=== PATIENT | female | born 1990 | race Caucasian/White ===

== ENCOUNTER 2016-11-13 00:10 | Emergency (ER) | payer BC, OTHER ==
[~2016-11-13] VITALS: Ht 165.1 cm; Wt 59.1 kg
[2016-11-13 00:18] VITALS: Ht 165.1 cm; Wt 59.1 kg
[2016-11-13] MEDS ORDERED: ONDANSETRON INJ 2 MG/ML 2 ML VIAL IV STA ×2 (00:28→01:25)
[2016-11-13] MEDS ORDERED: SODIUM CHLORIDE 0.9% 1000ML 2,000 ML IV STA (00:28)
[2016-11-13] MEDS ORDERED: SERT25TA PO (00:44)
[2016-11-13 00:51] LABS: BASO % 0.1 %; BASO ABS # 0.02 K/uL (0-0.2); COMPLETE YES; EOS % 0.1 %; IG% 0.4 %; LYMPH % 3.8 %; LYMPH ABS # 0.51 K/uL (1.2-3.4); MEAN CORPUSCULAR HEMOGLOBIN 30.4 pg (25-34); MEAN CORPUSCULAR HGB CONC 35.7 g/dl (32-36); MEAN PLATELET VOLUME 10.5 fL (7.4-10.4); NEUT % 92.6 %; PLATELET COUNT 249 K/uL (130-400); RED BLOOD COUNT 4.94 M/uL (4.2-5.4); WHITE BLOOD COUNT 13.49 K/uL (4.8-10.8)
[2016-11-13] MEDS ORDERED: KETOROLAC TROMETHAMINE 30 MG/ML VIAL IV STA (01:02)
[2016-11-13 01:08] LABS: BUN/CREATININE RATIO 14.7 (10-20); CREATININE 0.96 mg/dl (0.60-1.20); MAGNESIUM 1.6 mg/dl (1.8-2.4); POTASSIUM 3.1 mmol/L (3.5-5.1)
--- NOTE | 2016-11-13 01:16 | EMERGENCY ROOM VISIT NOTE ---
History First contact with patient: 00:20 Chief Complaint: ABDOMINAL PAIN Stated Complaint: DIARRHEA,HAVING TROUBLE BREATHING,NUMBNESS Nursing Triage Summary: pt c/o abd pain with n/v/d that started around 1800 History of Present Illness The patient is a 26 year old female who presents to the Emergency Department by private vehicle for evaluation of her nausea, vomiting, and diarrhea. The patient reports that she developed nausea and vomiting every few minutes had a proximally 6 PM. She developed associated diarrhea as well. She's been having pain in her abdomen after vomiting and reports that her pain occurs just before she needs to go to the bathroom and resolves after she moves her bowels. She reports that her friends have been sick with similar symptoms approximately 2 weeks ago. She denies any blood in her vomit or stool. She denies any previous abdominal surgeries. The patient complains of some trouble with breathing as well as numbness around her mouth and into her hands and feet bilaterally. She does report a history of anxiety issues. She rates her current discomfort as a 7/10. Patient denies any fevers, chills, headaches, dizziness, slurred speech, facial droop, unilateral weakness/numbness, chest pain, palpitations, hemoptysis, hematemesis, hematochezia, melena, hematuria, or dysuria. The patient denies any chance for . Review of Systems A complete 10-point Review of Systems was discussed with the patient, with pertinent positives and negatives listed in the History of Present Illness. All remaining Review of Systems questions can be considered negative unless otherwise specified. Social History Smoking Status: Never Smoker Smokeless Tobacco Use: No Drug Use: none Occupation Status: employed Current/Historical Medications Scheduled Sertraline (Zoloft), 25 MG PO DAILY Scheduled PRN Ondasetron Odt (Zofran Odt), 1 TAB SL Q6 PRN for Nausea or Vomiting Allergies Coded Allergies: Hydrocodone (Verified Adverse Reaction, Intermediate, HEADACHE/DIZZY, ) Physical Exam Vital Signs Date Time Temp Pulse Resp B/P Pulse Ox O2 Delivery O2 Flow Rate FiO2 11/13/16 02:56 92 18 101/55 98 11/13/16 02:07 99 Room Air 11/13/16 02:06 89 20 104/50 99 11/13/16 00:40 88 11/13/16 00:18 125 32 96/64 100 Room Air Pain Rating (0-10): 7 Physical Exam VITAL SIGNS - Vital signs and nursing notes were reviewed. GENERAL - 26-year-old female appearing her stated age who is in no acute distress. Communicates well with provider and answers questions appropriately. LUNGS - Chest wall symmetric without accessory muscle use, intercostals retractions, or central cyanosis. Normal vesicular breath sounds CTA B/L. No wheezes, rales, or rhonchi appreciated. CARDIAC - RRR with S1/S2. No murmur, rubs, or gallops appreciated. ABDOMEN - Abdominal contour flat and without pulsations or visible masses. Negative Daniel's or Fernandez Lau's Signs. BS normoactive all four quadrants. Mild tenderness to palpation appreciated diffusely throughout the abdomen. No guarding. No Rebound Tenderness. Negative Rovsing's. Negative Lakhani's. No palpable masses, hepatosplenomegaly, or ascites noted. EXTREMITIES - No clubbing or peripheral cyanosis. No pretibial edema present. +3 /5 radial and dorsalis pedis pulses palpated throughout. +5/5 strength appreciated bilaterally in the upper and lower extremities. PSYCH - A&Ox3 and cooperates fully with examiner. Pt is very pleasant and interacts well with examiner. Medical Decision & Procedures Laboratory Results 11/13/16 00:38 Red Blood Count 4.94, Mean Corpuscular Volume 85.0, Mean Corpuscular Hemoglobin 30.4, Mean Corpuscular Hemoglobin Concent 35.7, Mean Platelet Volume 10.5, Neutrophils (%) (Auto) 92.6, Lymphocytes (%) (Auto) 3.8, Monocytes (%) (Auto) 3.0, Eosinophils (%) (Auto) 0.1, Basophils (%) (Auto) 0.1, Neutrophils # (Auto) 12.49, Lymphocytes # (Auto) 0.51, Monocytes # (Auto) 0.40, Eosinophils # (Auto) 0.01, Basophils # (Auto) 0.02 11/13/16 00:38 Test 11/13/16 00:38 11/13/16 02:08 White Blood Count 13.49 K/uL (4.8-10.8) Red Blood Count 4.94 M/uL (4.2-5.4) Hemoglobin 15.0 g/dL (12.0-16.0) Hematocrit 42.0 % (37-47) Mean Corpuscular Volume 85.0 fL (80-100) Mean Corpuscular Hemoglobin 30.4 pg (25-34) Mean Corpuscular Hemoglobin Concent 35.7 g/dl (32-36) Platelet Count 249 K/uL (130-400) Mean Platelet Volume 10.5 fL (7.4-10.4) Neutrophils (%) (Auto) 92.6 % Lymphocytes (%) (Auto) 3.8 % Monocytes (%) (Auto) 3.0 % Eosinophils (%) (Auto) 0.1 % Basophils (%) (Auto) 0.1 % Neutrophils # (Auto) 12.49 K/uL (1.4-6.5) Lymphocytes # (Auto) 0.51 K/uL (1.2-3.4) Monocytes # (Auto) 0.40 K/uL (0.11-0.59) Eosinophils # (Auto) 0.01 K/uL (0-0.5) Basophils # (Auto) 0.02 K/uL (0-0.2) RDW Standard Deviation 38.2 fL (36.4-46.3) RDW Coefficient of Variation 12.3 % (11.5-14.5) Immature Granulocyte % (Auto) 0.4 % Immature Granulocyte # (Auto) 0.06 K/uL (0.00-0.02) Anion Gap 13.0 mmol/L (3-11) Est Creatinine Clear Calc Drug Dose 81.3 ml/min Estimated GFR () 95.9 Estimated GFR (Non- 82.8 BUN/Creatinine Ratio 14.7 (10-20) Calcium Level 9.0 mg/dl (8.5-10.1) Magnesium Level 1.6 mg/dl (1.8-2.4) Total Bilirubin 1.0 mg/dl (0.2-1) Aspartate Amino Transf (AST/SGOT) 14 U/L (15-37) Alanine Aminotransferase (ALT/SGPT) 20 U/L (12-78) Alkaline Phosphatase 38 U/L (45-117) Total Protein 7.5 gm/dl (6.4-8.2) Albumin 4.3 gm/dl (3.4-5.0) Globulin 3.2 gm/dl (2.5-4.0) Albumin/Globulin Ratio 1.3 (0.9-2) Lipase 81 U/L (73-393) Thyroid Stimulating Hormone (TSH) 1.970 uIu/ml (0.300-4.500) Urine Color ORANGE Urine Appearance CLEAR (CLEAR) Urine pH 5.0 (4.5-7.5) Urine Specific [place] 1.020 (1.000-1.030) Urine Protein NEG (NEG) Urine Glucose (UA) NEG (NEG) Urine Ketones 3+ (NEG) Urine Occult Blood NEG (NEG) Urine Nitrite NEG (NEG) Urine Bilirubin NEG (NEG) Urine Urobilinogen NEG (NEG) Urine Leukocyte Esterase NEG (NEG) Urine Test NEG (NEG) Medications Administered Medications (Trade) Dose Ordered Sig/John Route Start Time Stop Time Status Last Admin Dose Admin Sodium Chloride (Nss 1000ml) 2,000 ml @ 999 mls/hr Q2H1M STAT IV 11/13/16 00:28 11/13/16 02:28 DC 11/13/16 00:38 999 MLS/HR Ondansetron HCl (Zofran Inj) 4 mg NOW STAT IV 11/13/16 00:28 11/13/16 00:30 DC 11/13/16 00:38 4 MG Ketorolac Tromethamine (Toradol Inj) 30 mg NOW STAT IV 11/13/16 01:02 11/13/16 01:03 DC 11/13/16 01:17 30 MG Ondansetron HCl (Zofran Inj) 4 mg NOW STAT IV 11/13/16 01:25 11/13/16 01:26 DC 11/13/16 01:36 4 MG Potassium Chloride (Klor-Con M10) 20 meq NOW STAT PO 11/13/16 02:27 11/13/16 02:28 DC 11/13/16 02:37 20 MEQ Ondansetron HCl (ZOFRAN ODT 4MG Home Pack) 1 homepack UD ONCE PO 11/13/16 02:45 11/13/16 02:46 DC 11/13/16 02:50 1 HOMEPACK Procedure Patient was placed on the vehicle monitor technician and monitored throughout the entire extent of their stay. In addition, the patient's pulse oximetry was monitored throughout the entire stay. Any abnormalities or aberrancies were addressed appropriately. ED Course Patient was seen and evaluated by myself. Labs were drawn, saline lock in place. The patient was hydrated with 2000 mL of normal saline. She received 4 mg Zofran intravenously for nausea and vomiting. After demonstration of Zofran , the patient does feel somewhat better. Laboratory results demonstrate a mild leukocytosis. The patient is not anemic. There are no significant electrolyte abnormalities. Patient was reevaluated and reports feeling much better, but reports mild persistent nausea. She was treated with an additional 4 mg Zofran. Repeat abdominal exam was performed and the patient's abdomen is soft and nontender to palpation. She was provided 30 mg Toradol intravenously for occasional abdominal cramping. She was eventually able to provide a urine sample. Urinalysis does not suggest infection. Patient is eating and drinking in the emergency department without issue. She feels much better at this time. Her potassium was found to be 3.1 and she was provided 20 mEq of potassium chloride orally. Patient was educated on all today's findings. She was educated on following up with her primary care provider for repeat abdominal exam or for any change or worsening symptoms. She was instructed to return to the emergency department in the setting of any changing or worsening symptoms. Patient discharged home afebrile and in good condition. Medical Decision Given the patient's presentation and stated complaint, I did elect to perform the above-mentioned workup. The patient presents to the emergency department today complaining of nausea, vomiting, and diarrhea. There is been no blood in her vomit or stool. She was exposed to recent sick individuals as well. The patient is having an active anxiety attack on initial presentation. She has perioral area anesthesia as well as bilateral hand and feet paresthesias. She is hyperventilating. She felt much better after IV Zofran and IV fluid hydration. She had complete resolve of her symptoms with the above-mentioned medications. She does have a mild leukocytosis which I anticipate is likely from stress reaction of vomiting. Her abdomen is soft and nontender to palpation. She responded well to IV Toradol for some occasional cramping sensations. The patient will follow up closely with her primary care provider' s office on Tuesday for recheck. She was thoroughly educated on worrisome symptoms for return visit to the emergency part. Patient discharged home afebrile and in good condition. In the evaluation and treatment of this patient, the following differential diagnoses were considered: Appendicitis, Diverticulitis, Diverticulosis, Colitis , Ischemic Colitis, Inflammatory Bowel Disease, Irritable Bowel Disease, Ovarian Torsion, , Kidney Stone, Pyelonephritis, Hydronephrosis, Cholecystitis, Ascending Cholangitis, Choledocholithiasis, GERD. Impression Primary Impression: Acute gastroenteritis Additional Impression: Anxiety reaction Departure Information Dispostion Home / Self-Care Condition GOOD Prescriptions Ondasetron Odt (ZOFRAN ODT) 4 Mg Tab 1 TAB SL Q6 Y for Nausea or Vomiting for 5 Days, #20 TAB Prov: Randy Corral PA-C 11/13/16 Referrals Micheline Simpson D.O. (PCP) Patient Instructions A Signature Page, ED Anxiety Reaction Ch, ED Gastroenteritis Non Infec Ch Additional Instructions You have been treated in the Emergency Department your Nausea, Vomiting, and Diarrhea. You have been prescribed Zofran to be used for any nausea or vomiting. Take as prescribed. For pain control, you can use the following [id number] medicines (if >12 yo): - Regular strength (325mg/tab) Tylenol (acetaminophen) 2 tabs every 4-6 hours as needed. Do not exceed 12 tablets in a 24 hour period. Avoid taking more than 4 grams (4000 mg) of Tylenol per day. This includes any other sources of acetaminophen you may take on a regular basis. - Regular strength (200 mg/tab) Advil (ibuprofen) 1-2 tabs every 4-6 hours as needed. Do not exceed a dose of 3200 mg per day. Drink plenty of water and stay well hydrated. As with any trip to the Emergency Department, you should follow-up with your Primary Care Provider from today's visit. Return to the emergency department if your symptoms persist despite treatment plan outlined above or if the following symptoms occur: increased fevers, chills , worsening nausea/vomiting, blood in your stool or urine.
[2016-11-13 01:19] LABS: ALB/GLOB RATIO 1.3 (0.9-2); THYROID STIMULATING HORMONE 1.97 uIu/ml (0.300-4.500)
[2016-11-13 02:07] VITALS: O2SAT 99
[2016-11-13] MEDS ORDERED: POTASSIUM CHLORIDE 10 MEQ TABCR PO STA (02:27)
[2016-11-13 02:31] LABS: URINE APPEARANCE CLEAR (CLEAR); URINE BILIRUBIN NEG (NEG); URINE COLOR ORANGE; URINE NITRITE NEG (NEG); UROBILINOGEN NEG (NEG); ZZUR CULT IF INDIC CLEAN CATCH NO
[2016-11-13 02:32] LABS: PREG INTERNAL NEGATIVE QC NEG CLEAR BACKGROUND; PREG INTERNAL POSITIVE QC POS CONTROL LINE
[2016-11-13 02:34] LABS: MANUAL MICROSCOPIC REQUIRED? NO; REVIEW REQ? NO
[2016-11-13] MEDS ORDERED: ONDA4TAB10 SL (02:43)
[2016-11-13] MEDS ORDERED: ONDANSETRON HOME PACK 4MG OD TAB PO ONE (02:45)
[2016-11-13 02:56] VITALS: BP 101/55; PULSE 92; O2SAT 98
[2016-11-13] MEDS ORDERED: ACET-1256 PO (18:56)
== END 2016-11-13 03:00 | disposition home or self-care (01) ==
LOC: C.EDB 00:10
DX: K52.9 Noninfective gastroenteritis and colitis, unspecified (principal); F41.9 Anxiety disorder, unspecified; D72.829 Elevated white blood cell count, unspecified; Z88.5 Allergy status to narcotic agent

== ENCOUNTER 2016-11-13 18:36 | Emergency (ER) | payer BC ==
[~2016-11-13] VITALS: Ht 165.1 cm; Wt 60.9 kg
[~2016-11-13 18:36] MED LIST: ONDA4TAB10 SL; SERT25TA PO
[2016-11-13 18:39] VITALS: TEMP 36.8; Ht 165.1 cm; Wt 60.9 kg
[2016-11-13] MEDS ORDERED: ACET-1256 PO (18:56)
[2016-11-13] MEDS ORDERED: SODIUM CHLORIDE 0.9% 1000ML 1,000 ML IV STA (19:34)
[2016-11-13] MEDS ORDERED: MoRPHine SULFATE 2 MG/ML CARP IV STA (19:34)
[2016-11-13] MEDS ORDERED: PROMETHAZINE HCL INJ 12.5 MG in SODIUM CHLORIDE 0.9% 50ML 50 ML IV STA (19:34)
--- NOTE | 2016-11-13 19:53 | EMERGENCY ROOM VISIT NOTE ---
History Report prepared by Jet: Brina Fernandes Under the Supervision of: Dr. Sue Flores M.D. First contact with patient: 19:01 Chief Complaint: GI ASSESSMENT Stated Complaint: ABD PAIN,VOMITING,DIARRHEA,LOW BP Nursing Triage Summary: patient seen here yesterday for nausea/ vomiting and was sent home on zofran. patient states today symptoms remain unchanged along with abdominal discomfort and she was told to come back to ED if not feeling improvement. History of Present Illness The patient is a 26 year old female who presents to the Emergency Room with complaints of persistent upper abdominal pain throughout the day. She notes that the pain radiates across the top of her abdomen but occasionally it is worse in the right upper quadrant. She also complains of nausea. The patient was seen in the emergency room early this morning for nausea and vomiting, "I had severe dehydration and shock symptoms." She was discharged after having lab work and receiving Zofran, fluids and Toradol. She was diagnosed with acute gastroenteritis and anxiety reaction and was discharged with a prescription for Zofran. She was told to come back to the emergency room if her symptoms did not improve. Today, the patient continued to have abdominal pain and also had worsening nausea throughout the day. She states that she has been taking more Zofran than recommended because she was afraid she would vomit. This evening, the patient was seen at Urgent Care and her blood pressure was low at around 80/ 30. She was referred to the ER at that point. She has taken Tylenol 3 separate times today. Source of History: patient Onset: today Position: abdomen (upper) Timing: worsening Associated Symptoms: + nausea Note: Other symptoms: hypotension Review of Systems See HPI for pertinent positives & negatives. A total of 10 systems reviewed and were otherwise negative. Past Medical & Surgical Medical Problems: (1) Anxiety (2) Asthma (3) Depression Family History Cancer Heart disease Hypertension Social History Smoking Status: Never Smoker Smokeless Tobacco Use: No Alcohol Use: occasionally Drug Use: none Housing Status: lives alone Occupation Status: employed Current/Historical Medications Scheduled Sertraline (Zoloft), 37.5 MG PO DAILY Scheduled PRN Acetaminophen (Tylenol), 500 MG PO Q8 PRN for Pain Ondasetron Odt (Zofran Odt), 1 TAB SL Q6 PRN for Nausea or Vomiting Allergies Coded Allergies: Iodine (Unverified Allergy, Unknown, HIVES, 11/13/16) IODINE SOLUTION Oxycodone (Unverified Allergy, Unknown, HEADACHE/DIZZINESS, 11/13/16) Hydrocodone (Verified Adverse Reaction, Intermediate, HEADACHE/DIZZY, ) Physical Exam Vital Signs Date Time Temp Pulse Resp B/P Pulse Ox O2 Delivery O2 Flow Rate FiO2 11/13/16 21:48 78 20 95/55 98 Room Air 11/13/16 20:23 84 11/13/16 20:22 77 20 94/55 100 11/13/16 18:39 36.8 98 18 99/57 96 Room Air Physical Exam Vital signs reviewed. General: Well-appearing 26 year old female, in no significant distress. HEENT: No scleral icterus, PERRLA, neck supple. Atraumatic. Cardiovascular: Regular rate and rhythm, no extra sounds. Pulmonary: Clear to auscultation bilaterally, normal work of breathing. Abdomen: Soft, tender to palpation of the epigastric region, nondistended, positive bowel sounds. Musculoskeletal: Atraumatic, no peripheral edema. Neurologic: Patient awake alert and oriented x 3 Skin: Warm, dry, no rash Medical Decision & Procedures ER Provider Diagnostic Interpretation: CT results as stated below per my review and radiologist interpretation: ABDOMEN AND PELVIS CT WITH IV CONTRAST CT DOSE: 263.54 mGy.cm HISTORY: epigastric abdominal pain, guarding, vomiting TECHNIQUE: Multiaxial CT images of the abdomen and pelvis were performed following the use of intravenous contrast. COMPARISON STUDY: None. FINDINGS: Trace pelvic free fluid which is likely physiologic. The bladder, uterus, left ovary are unremarkable. There is a 2.2 cm cyst within the right ovary. The visualized portions of the appendix are unremarkable. The lung bases are clear. No pneumoperitoneum. No pneumatosis. No fractures within the visualized osseous structures. The liver, gallbladder, pancreas, spleen, adrenal glands, and kidneys are unremarkable. No hydronephrosis. No retroperitoneal lymphadenopathy. Multiple mesenteric lymph nodes are subcentimeter in short axis diameter. Therefore, these do not meet CT criteria for pathologic involvement. The majority of the bowel is decompressed which results in suboptimal evaluation for bowel pathology. However, there is no definite bowel wall thickening or obstruction. IMPRESSION: 1. No definite bowel wall thickening or obstruction. 2. The visualized appendix is unremarkable. 3. Trace pelvic free fluid which is likely physiologic. 4. A 2.2 cm right ovarian cyst. Electronically signed by: Pola Tay M.D. 11/13/2016 9:03 PM Dictated Date/Time: 11/13/2016 8:55 PM Laboratory Results 11/13/16 19:55 Red Blood Count 4.31, Mean Corpuscular Volume 85.4, Mean Corpuscular Hemoglobin 28.8, Mean Corpuscular Hemoglobin Concent 33.7, Mean Platelet Volume 10.1, Neutrophils (%) (Auto) 84.5, Lymphocytes (%) (Auto) 7.6, Monocytes (%) (Auto) 6.9, Eosinophils (%) (Auto) 0.5, Basophils (%) (Auto) 0.3, Neutrophils # (Auto) 5.00, Lymphocytes # (Auto) 0.45, Monocytes # (Auto) 0.41, Eosinophils # (Auto) 0.03, Basophils # (Auto) 0.02 11/13/16 19:55 Test 11/13/16 19:55 White Blood Count 5.92 K/uL (4.8-10.8) Red Blood Count 4.31 M/uL (4.2-5.4) Hemoglobin 12.4 g/dL (12.0-16.0) Hematocrit 36.8 % (37-47) Mean Corpuscular Volume 85.4 fL (80-100) Mean Corpuscular Hemoglobin 28.8 pg (25-34) Mean Corpuscular Hemoglobin Concent 33.7 g/dl (32-36) Platelet Count 184 K/uL (130-400) Mean Platelet Volume 10.1 fL (7.4-10.4) Neutrophils (%) (Auto) 84.5 % Lymphocytes (%) (Auto) 7.6 % Monocytes (%) (Auto) 6.9 % Eosinophils (%) (Auto) 0.5 % Basophils (%) (Auto) 0.3 % Neutrophils # (Auto) 5.00 K/uL (1.4-6.5) Lymphocytes # (Auto) 0.45 K/uL (1.2-3.4) Monocytes # (Auto) 0.41 K/uL (0.11-0.59) Eosinophils # (Auto) 0.03 K/uL (0-0.5) Basophils # (Auto) 0.02 K/uL (0-0.2) RDW Standard Deviation 38.9 fL (36.4-46.3) RDW Coefficient of Variation 12.5 % (11.5-14.5) Immature Granulocyte % (Auto) 0.2 % Immature Granulocyte # (Auto) 0.01 K/uL (0.00-0.02) Urine Color DK YELLOW Urine Appearance CLOUDY (CLEAR) Urine pH 5.5 (4.5-7.5) Urine Specific [place] 1.044 (1.000-1.030) Urine Protein 1+ (NEG) Urine Glucose (UA) NEG (NEG) Urine Ketones TRACE (NEG) Urine Occult Blood NEG (NEG) Urine Nitrite NEG (NEG) Urine Bilirubin NEG (NEG) Urine Urobilinogen NEG (NEG) Urine Leukocyte Esterase NEG (NEG) Urine WBC (Auto) 1-5 /hpf (0-5) Urine RBC (Auto) 0-4 /hpf (0-4) Urine Hyaline Casts (Auto) 0 /lpf (0-5) Urine Epithelial Cells (Auto) >30 /lpf (0-5) Urine Bacteria (Auto) NEG (NEG) Urine Renal Epithelial Cells /lpf (0-5) Urine Mucus PRESENT (NONE PRSENT) Urine Yeast (Auto) (NONE PRSENT) Anion Gap 9.0 mmol/L (3-11) Est Creatinine Clear Calc Drug Dose 125.9 ml/min Estimated GFR () 146.3 Estimated GFR (Non- 126.2 BUN/Creatinine Ratio 17.8 (10-20) Calcium Level 8.0 mg/dl (8.5-10.1) Total Bilirubin 0.5 mg/dl (0.2-1) Direct Bilirubin 0.1 mg/dl (0-0.2) Aspartate Amino Transf (AST/SGOT) 13 U/L (15-37) Alanine Aminotransferase (ALT/SGPT) 18 U/L (12-78) Alkaline Phosphatase 29 U/L (45-117) Total Protein 5.9 gm/dl (6.4-8.2) Albumin 3.2 gm/dl (3.4-5.0) Lipase 72 U/L (73-393) Laboratory results per my review. Medications Administered Medications (Trade) Dose Ordered Sig/John Route Start Time Stop Time Status Last Admin Dose Admin Sodium Chloride 1,000 ml @ 999 mls/hr Q1H1M STAT IV 11/13/16 19:34 11/13/16 20:34 DC 11/13/16 19:54 999 MLS/HR Promethazine HCl/ Sodium Chloride (Phenergan Inj/ Nss 50ml) 50.5 ml @ 204 mls/hr NOW STAT IV 11/13/16 19:34 11/13/16 19:48 DC 11/13/16 19:59 204 MLS/HR Morphine Sulfate (MoRPHine SULFATE INJ) 2 mg NOW STAT IV 11/13/16 19:34 11/13/16 19:37 DC 11/13/16 20:01 2 MG Methylprednisolone Sodium Succinate (Solu-Medrol IV) 125 mg NOW STAT IV 11/13/16 20:04 11/13/16 20:05 DC 11/13/16 20:20 125 MG Diphenhydramine HCl (Benadryl Inj) 25 mg NOW STAT IV 11/13/16 20:04 11/13/16 20:05 DC 11/13/16 20:20 25 MG Potassium Chloride (Klor-Con M10) 40 meq NOW STAT PO 11/13/16 20:38 11/13/16 20:39 DC 11/13/16 21:01 40 MEQ Famotidine (Pepcid Tab) 20 mg NOW ONCE PO 11/13/16 21:30 11/13/16 21:31 DC 11/13/16 21:45 20 MG ED Course 1932: Past medical records reviewed. The patient was evaluated in room B8. A complete history and physical examination was performed. Ordered Morphine Sulfate 2 mg IV, Promethazine HCl 12.5 mg/NSS 50.5 ml @ 204 mls/hr IV, NSS 1000 ml @ 999 mls/hr IV. 2003: Ordered Benadryl Inj 25 mg IV, Solu-Medrol 125 mg IV. 2037: Ordered Potassium Chloride 40 meq PO. 2123: Upon reevaluation, the patient appeared to have improvement of her symptoms. I discussed findings with the patient. She verbalized agreement of the treatment plan. The patient was discharged home. 2129: Ordered Famotidine 20 mg PO. Medical Decision Differential diagnosis: Etiologies such as gastroenteritis, food borne illness, infections, appendicitis , diverticulitis, inflammatory bowel disease, obstruction, GI bleed, biliary pathology, as well as others were entertained. This patient was evaluated and appeared to be in no significant distress. IV access was obtained and laboratory work was drawn. The patient was hydrated with normal saline solution. She was medicated with IV Phenergan and morphine for her discomforts. A CT scan abdomen and pelvis was performed as she was markedly tender to the epigastric region on exam. She does have some allergic reaction to IV iodine and was premedicated with IV Benadryl and Solu-Medrol prior to the CT. Laboratory work is fairly unrevealing. Lipase is normal. CT scan reveals no evidence of acute pathology. The patient was informed of the findings. She was advised to drink plenty of clear liquids and a Zofran as needed for nausea. She will start Pepcid 20 mg twice daily and follow-up with her primary care physician this week. She will return to the ER for worsening of symptoms or any medical concerns. Impression Primary Impression: Epigastric abdominal pain Additional Impression: Nausea Scribe Attestation The scribe's documentation has been prepared under my direction and personally reviewed by me in its entirety. I confirm that the note above accurately reflects all work, treatment, procedures, and medical decision making performed by me. Departure Information Dispostion Home / Self-Care Referrals Micheline Simpson D.O. (PCP) Patient Instructions A Signature Page, My [facility] Additional Instructions Diagnosis: Nausea, epigastric abdominal pain Pepcid 20 mg twice daily. Continue Zofran every 6 hours as needed for nausea. Drink plenty of clear fluids. Advance your diet slowly as tolerated, bananas, rice, applesauce and toast. Return to the emergency department for worsening of symptoms or any medical concerns.
[2016-11-13] MEDS ORDERED: METHYLPREDNISOLONE 125 MG VIAL IV STA (20:04)
[2016-11-13] MEDS ORDERED: DiphenhydrAMINE HCL 50 MG/ML VIAL IV STA (20:04)
[2016-11-13 20:06] LABS: BASO % 0.3 %; BASO ABS # 0.02 K/uL (0-0.2); COMPLETE YES; EOS % 0.5 %; HEMATOCRIT 36.8 % (37-47); IG% 0.2 %; LYMPH % 7.6 %; LYMPH ABS # 0.45 K/uL (1.2-3.4); MEAN CELL VOLUME 85.4 fL (80-100); MEAN CORPUSCULAR HEMOGLOBIN 28.8 pg (25-34); MEAN CORPUSCULAR HGB CONC 33.7 g/dl (32-36); MEAN PLATELET VOLUME 10.1 fL (7.4-10.4); MONO % 6.9 %; NEUT % 84.5 %; PLATELET COUNT 184 K/uL (130-400); RED BLOOD COUNT 4.31 M/uL (4.2-5.4); WHITE BLOOD COUNT 5.92 K/uL (4.8-10.8)
[2016-11-13 20:36] LABS: BUN/CREATININE RATIO 17.8 (10-20); POTASSIUM 3.1 mmol/L (3.5-5.1)
[2016-11-13 20:37] LABS: CREATININE 0.62 mg/dl (0.60-1.20)
[2016-11-13] MEDS ORDERED: POTASSIUM CHLORIDE 10 MEQ TABCR PO STA (20:38)
[2016-11-13] MEDS ORDERED: OPTIRAY 320 IV PRN (20:45)
--- NOTE | 2016-11-13 21:05 | DIAGNOSTIC IMAGING REPORT ---
ABDOMEN AND PELVIS CT WITH IV CONTRAST CT DOSE: 263.54 mGy.cm HISTORY: epigastric abdominal pain, guarding, vomiting TECHNIQUE: Multiaxial CT images of the abdomen and pelvis were performed following the use of intravenous contrast. COMPARISON STUDY: None. FINDINGS: Trace pelvic free fluid which is likely physiologic. The bladder, uterus, left ovary are unremarkable. There is a 2.2 cm cyst within the right ovary. The visualized portions of the appendix are unremarkable. The lung bases are clear. No pneumoperitoneum. No pneumatosis. No fractures within the visualized osseous structures. The liver, gallbladder, pancreas, spleen, adrenal glands, and kidneys are unremarkable. No hydronephrosis. No retroperitoneal lymphadenopathy. Multiple mesenteric lymph nodes are subcentimeter in short axis diameter. Therefore, these do not meet CT criteria for pathologic involvement. The majority of the bowel is decompressed which results in suboptimal evaluation for bowel pathology. However, there is no definite bowel wall thickening or obstruction. IMPRESSION: 1. No definite bowel wall thickening or obstruction. 2. The visualized appendix is unremarkable. 3. Trace pelvic free fluid which is likely physiologic. 4. A 2.2 cm right ovarian cyst. Electronically signed by: Pola Tay M.D. 11/13/2016 9:03 PM Dictated Date/Time: 11/13/2016 8:55 PM
[2016-11-13] MEDS ORDERED: FAMOTIDINE 20 MG TAB PO ONE (21:30)
[2016-11-13 21:48] VITALS: BP 95/55; PULSE 78; O2SAT 98
[2016-11-13 23:03] LABS: URINE APPEARANCE CLOUDY (CLEAR); URINE COLOR DK YELLOW; URINE EPITHELIAL CELL AUTO >30 /lpf (0-5); URINE NITRITE NEG (NEG); URINE PH 5.5 (4.5-7.5); URINE SPECIFIC GRAVITY 1.044 (1.000-1.030); UROBILINOGEN NEG (NEG); ZZUR CULT IF INDIC CLEAN CATCH YES
[2016-11-13 23:17] LABS: MANUAL MICROSCOPIC REQUIRED? NO; REVIEW REQ? YES; URINE BILIRUBIN NEG (NEG)
[2016-11-13 23:23] LABS: URINE MUCUS PRESENT (NONE PRSENT)
== END 2016-11-13 21:50 | disposition home or self-care (01) ==
LOC: C.EDB 18:39
DX: R10.13 Epigastric pain (principal); R11.0 Nausea; F41.9 Anxiety disorder, unspecified; J45.909 Unspecified asthma, uncomplicated; F32.9 Major depressive disorder, single episode, unspecified; Z88.5 Allergy status to narcotic agent; Z91.09 Other allergy status, other than to drugs and biological substances; Z88.8 Allergy status to other drugs, medicaments and biological substances; Z80.9 Family history of malignant neoplasm, unspecified; Z82.49 Family history of ischemic heart disease and other diseases of the circulatory system

== ENCOUNTER 2017-11-16 01:27 | Emergency (ER) | payer BC, OTHER ==
[~2017-11-16] VITALS: Ht 162.6 cm; Wt 56.9 kg
[~2017-11-16 01:27] MED LIST changes: +ACET-1256 PO; -ONDA4TAB10 SL
[2017-11-16 01:33] VITALS: TEMP 36.9; Ht 162.6 cm; Wt 56.9 kg
[2017-11-16] MEDS ORDERED: SODIUM CHLORIDE 0.9% 1000ML 1,000 ML IV STA (02:05)
[2017-11-16 02:54] LABS: BASO % 0.4 %; BASO ABS # 0.02 K/uL (0-0.2); HEMOGLOBIN 13.9 g/dL (12.0-16.0); IG# 0.02 K/uL (0.00-0.02); LYMPH ABS # 0.27 K/uL (1.2-3.4); MEAN CELL VOLUME 84.9 fL (80-100); MEAN CORPUSCULAR HEMOGLOBIN 29.5 pg (25-34); MEAN CORPUSCULAR HGB CONC 34.8 g/dl (32-36); MEAN PLATELET VOLUME 10.2 fL (7.4-10.4); MONO % 7.2 %; MONO ABS # 0.39 K/uL (0.11-0.59); NEUT ABS # 4.72 K/uL (1.4-6.5); PLATELET COUNT 172 K/uL (130-400); RED CELL DISTRIBUTION WIDTH CV 12.9 % (11.5-14.5); RED CELL DISTRIBUTION WIDTH SD 39.7 fL (36.4-46.3); WHITE BLOOD COUNT 5.42 K/uL (4.8-10.8)
[2017-11-16] MEDS ORDERED: LOPERAMIDE HCL 2 MG CAP PO STA (02:59)
[2017-11-16 03:11] LABS: ALBUMIN 3.7 gm/dl (3.4-5.0); ALT/SGPT 19 U/L (12-78); AST/SGOT 12 U/L (15-37); BLOOD UREA NITROGEN 10 mg/dl (7-18); CALCIUM 8.6 mg/dl (8.5-10.1); CARBON DIOXIDE 25 mmol/L (21-32); GLUCOSE 100 mg/dl (70-99); POTASSIUM 3.4 mmol/L (3.5-5.1); SODIUM 134 mmol/L (136-145)
[2017-11-16 03:13] LABS: ALKALINE PHOSPHATASE 38 U/L (45-117); TOTAL PROTEIN 6.9 gm/dl (6.4-8.2)
[2017-11-16] MEDS ORDERED: SERT50TA PO (03:49)
[2017-11-16 04:01] VITALS: BP 104/55
[2017-11-16 04:12] VITALS: PULSE 77; O2SAT 96
--- NOTE | 2017-11-16 09:49 | EMERGENCY ROOM VISIT NOTE ---
History Report prepared by Jet: Anastasia Khoury Under the Supervision of: Dr. Ca Doty D.O. First contact with patient: 01:40 Chief Complaint: VOMITING Stated Complaint: VOMITING,DIARRHEA,BLOODY VOMIT History of Present Illness The patient is a 27 year old female who presents to the Emergency Room with complaints of worsening vomiting starting yesterday morning. The patient states that she got the stomach bug and all he friends have had it. She states that she usually ends up in the ED when she gets sick like this because it gets so intense she becomes dehydrated. She reports that her PCP prescribed her Zofran 4 mg for when this happens. She states that she last took it five hours ago. The patient reports that this has helped keep the vomiting to a minimum, but still has been. She states that she became concerned when she had a little blood in her vomit. The patient notes that she has been drinking ice water and Sherie Yeny. The patient complains of nausea, diarrhea, and abdominal pain. She notes her last bought of diarrhea was an hour ago. She denies taking Imodium for it. She notes that she took Tylenol and it offered relief for her abdominal pain. The patient denies leg cramping and leg swelling. The patient notes that her LNMP was two weeks ago. Source of History: patient Onset: yesterday morning Position: other (global) Quality: other (with blood) Timing: worsening Modifying Factors (Relieving): tylenol Associated Symptoms: + nausea, + abdominal pain, + diarrhea Note: The patient denies leg cramping and leg swelling. Review of Systems See HPI for pertinent positives & negatives. A total of 10 systems reviewed and were otherwise negative. Past Medical & Surgical Medical Problems: (1) Anxiety (2) Asthma (3) Depression Family History Cancer Heart disease Hypertension Social History Smoking Status: Never Smoker Alcohol Use: occasionally Drug Use: none Housing Status: lives alone Occupation Status: employed Current/Historical Medications Scheduled Sertraline (Zoloft), 75 MG PO DAILY Allergies Coded Allergies: Iodine (Unverified Allergy, Unknown, HIVES, 11/16/17) IODINE SOLUTION Oxycodone (Unverified Allergy, Unknown, HEADACHE/DIZZINESS, 11/16/17) Hydrocodone (Verified Adverse Reaction, Intermediate, HEADACHE/DIZZY, 11/16) Physical Exam Vital Signs Date Time Temp Pulse Resp B/P (MAP) Pulse Ox O2 Delivery O2 Flow Rate FiO2 11/16/17 04:12 77 96 11/16/17 04:07 78 96 11/16/17 04:02 76 16 96 Room Air 11/16/17 04:01 104/55 11/16/17 03:47 78 97 11/16/17 03:32 74 97 11/16/17 03:31 106/60 11/16/17 03:17 82 96 11/16/17 03:12 70 18 95 11/16/17 03:01 106/63 11/16/17 02:57 83 97 11/16/17 02:42 72 98 11/16/17 02:31 112/63 11/16/17 02:27 82 97 11/16/17 02:12 78 96 11/16/17 02:01 113/66 11/16/17 01:57 87 18 96 Room Air 11/16/17 01:56 125/64 11/16/17 01:33 36.9 114 18 101/60 96 Room Air Physical Exam HEENT: Head - normocephalic and atraumatic Pupils are equal, round, and reactive to light. Extraocular eye muscles are intact, and sclera are anicteric. Nose - moist nasal mucosa without discharge. Mouth - moist buccal mucosa. Oropharynx is nonerythematous and there is no tonsillar exudate or edema noted. Neck: Supple; no JVD, nuchal rigidity, cervical lymphadenopathy. Heart: Regular rate and rhythm. There is a normal S1 and S2 with no murmurs, clicks, or gallops appreciated. Lungs: Clear to auscultation bilaterally with no wheezes, rales, or rhonchi. Abdomen: Soft, completely nontender, nondistended, with good bowel sounds. There are no palpable pulsatile masses or hepatosplenomegaly. There is no guarding, rigidity, or rebound noted. Extremities: No evidence of cyanosis, clubbing, or edema. There are easily palpable peripheral pulses. Skin: warm and dry with good turgor and no rashes. Medical Decision & Procedures Laboratory Results 11/16/17 02:35 Red Blood Count 4.71, Mean Corpuscular Volume 84.9, Mean Corpuscular Hemoglobin 29.5, Mean Corpuscular Hemoglobin Concent 34.8, Mean Platelet Volume 10.2, Neutrophils (%) (Auto) 87.0, Lymphocytes (%) (Auto) 5.0, Monocytes (%) (Auto) 7.2, Eosinophils (%) (Auto) 0.0, Basophils (%) (Auto) 0.4, Neutrophils # (Auto) 4.72, Lymphocytes # (Auto) 0.27, Monocytes # (Auto) 0.39, Eosinophils # (Auto) 0.00, Basophils # (Auto) 0.02 11/16/17 02:35 Test 11/16/17 02:35 White Blood Count 5.42 K/uL (4.8-10.8) Red Blood Count 4.71 M/uL (4.2-5.4) Hemoglobin 13.9 g/dL (12.0-16.0) Hematocrit 40.0 % (37-47) Mean Corpuscular Volume 84.9 fL (80-100) Mean Corpuscular Hemoglobin 29.5 pg (25-34) Mean Corpuscular Hemoglobin Concent 34.8 g/dl (32-36) Platelet Count 172 K/uL (130-400) Mean Platelet Volume 10.2 fL (7.4-10.4) Neutrophils (%) (Auto) 87.0 % Lymphocytes (%) (Auto) 5.0 % Monocytes (%) (Auto) 7.2 % Eosinophils (%) (Auto) 0.0 % Basophils (%) (Auto) 0.4 % Neutrophils # (Auto) 4.72 K/uL (1.4-6.5) Lymphocytes # (Auto) 0.27 K/uL (1.2-3.4) Monocytes # (Auto) 0.39 K/uL (0.11-0.59) Eosinophils # (Auto) 0.00 K/uL (0-0.5) Basophils # (Auto) 0.02 K/uL (0-0.2) RDW Standard Deviation 39.7 fL (36.4-46.3) RDW Coefficient of Variation 12.9 % (11.5-14.5) Immature Granulocyte % (Auto) 0.4 % Immature Granulocyte # (Auto) 0.02 K/uL (0.00-0.02) Urine Color YELLOW Urine Appearance CLOUDY (CLEAR) Urine pH 5.5 (4.5-7.5) Urine Specific [place] 1.025 (1.000-1.030) Urine Protein 1+ (NEG) Urine Glucose (UA) NEG (NEG) Urine Ketones 2+ (NEG) Urine Occult Blood 1+ (NEG) Urine Nitrite NEG (NEG) Urine Bilirubin NEG (NEG) Urine Urobilinogen NEG (NEG) Urine Leukocyte Esterase NEG (NEG) Urine RBC 5-10 /hpf (0-4) Urine WBC 1-5 /hpf (0-5) Urine Epithelial Cells >30 /lpf (0-5) Urine Amorphous Sediment PRESENT (NONE PRSENT) Urine Bacteria 1+ (NEG) Urine Hyaline Casts 0 /lpf (0-5) Urine Test NEG (NEG) Anion Gap 6.0 mmol/L (3-11) Est Creatinine Clear Calc Drug Dose 123.8 ml/min Estimated GFR () 146.8 Estimated GFR (Non- 126.7 BUN/Creatinine Ratio 16.2 (10-20) Calcium Level 8.6 mg/dl (8.5-10.1) Total Bilirubin 0.4 mg/dl (0.2-1) Direct Bilirubin < 0.1 mg/dl (0-0.2) Aspartate Amino Transf (AST/SGOT) 12 U/L (15-37) Alanine Aminotransferase (ALT/SGPT) 19 U/L (12-78) Alkaline Phosphatase 38 U/L (45-117) Total Protein 6.9 gm/dl (6.4-8.2) Albumin 3.7 gm/dl (3.4-5.0) Laboratory results per my review. Medications Administered Medications (Trade) Dose Ordered Sig/John Route Start Time Stop Time Status Last Admin Dose Admin Sodium Chloride 1,000 ml @ 999 mls/hr Q1H1M STAT IV 11/16/17 02:05 11/16/17 03:05 DC 11/16/17 02:38 999 MLS/HR Loperamide HCl (Imodium Cap) 2 mg NOW STAT PO 11/16/17 02:59 11/16/17 03:00 DC 11/16/17 03:16 2 MG Procedure 0205: Ordered NSS 1000 ml @ 999 mls/hr IV. 0259: Ordered Imodium Robin 2 mg PO. ED Course 0159: Past medical records reviewed. The patient was evaluated in room A3. A complete history and physical exam was performed. An IV lock was initiated and labs were drawn as above. 0205: Ordered NSS 1000 ml @ 999 mls/hr IV. 0259: Ordered Imodium Robin 2 mg PO. 0335: I reevaluated the patient and she feels better. She had no further vomiting or diarrhea. She was able to drink Gatorade without any difficulty. She had no additional abdominal pain. 0358: Upon reevaluation, the patient feels much better. I discussed findings and results with her. She verbalized agreement of the treatment plan. The patient was discharged home. Medical Decision The patient is a 27 year old female who presents to the Emergency Room with complaints of worsening vomiting starting yesterday morning. Differential diagnoses include anxiety, hematemesis, gastritis, viral gastroenteritis. LABS: No leukocytosis Stable H&H Sodium 134 Potassium 3.4 Normal renal function Normal glucose Normal LFTs Negative URINE: 1+ protein, 1+ blood, 2+ ketones with 1+ bacteria and greater than 30 epithelial cells This is a 27-year-old female patient who presents to the emergency department with a small amount of hematemesis. The patient has had excessive vomiting and diarrhea over the past 18 hours as result of gastroenteritis. She became concerned this morning when she had an episode of vomiting which was blood- tinged. Upon arrival here in the emergency department, the patient was nearly symptom-free. She has been using oral Zofran at home with relief of her symptoms. She was able to drink liquids and had no further vomiting or diarrhea. The patient was given expectant care instructions. Medication Reconcilliation Current Medication List: was personally reviewed by me Blood Pressure Screening Patient's blood pressure: Normal blood pressure Blood pressure disposition: Did not require urgent referral Impression Primary Impression: Vomiting and diarrhea Scribe Attestation The scribe's documentation has been prepared under my direction and personally reviewed by me in its entirety. I confirm that the note above accurately reflects all work, treatment, procedures, and medical decision making performed by me. Departure Information Dispostion Home / Self-Care Referrals Micheline Simpson D.O. (PCP) Forms HOME CARE DOCUMENTATION FORM, IMPORTANT VISIT INFORMATION Patient Instructions My [facility] Additional Instructions Rest. take plenty of clear liquids take a bland diet
== END 2017-11-16 04:17 | disposition home or self-care (01) ==
LOC: C.EDB 01:28 → C.EDA 04:17
DX: K92.0 Hematemesis (principal); R19.7 Diarrhea, unspecified; J45.909 Unspecified asthma, uncomplicated; F32.9 Major depressive disorder, single episode, unspecified; Z82.49 Family history of ischemic heart disease and other diseases of the circulatory system; Z79.899 Other long term (current) drug therapy